=== PATIENT | female | born 1970 | race Caucasian/White ===

== ENCOUNTER → 2017-09-15 | Day surgery (SDC) | payer OTHER, MEDICARE ==
[~2017-09-15] VITALS: Ht 160 cm; Wt 84.4 kg
[~2017-09-15] MED LIST: ALPR-1 PO; ATOR20TA65 PO; DESV100T PO; DIAZ-308 PO; DULO60CA7; GABA-549 PO; LEVO112T44 PO; LIDOCAINE/SOD BICARB 8.4% SYR ID ONE; NORMOSOL R SOLN(*) 1000 ML BAG 1,000 ML IV PRN; ONDA8TAB91 PO; PANT40TA65 PO; PREG100C44 PO; PROP40TA45 PO; PROPOFOL EMUL(*) 10MG/ML 20 ML 40 ML ONE; QUET50TA PO; RANI-324 PO; RIZA10TA3 PO; SUCR1TAB51 PO; TRI50 FT; TRIA1CAP85 PO; [UNRECOGNIZED DRUG - OTHER]
[2017-09-15 10:00] VITALS: BP 124/88
[2017-09-15 12:26] VITALS: BP 108/76
[2017-09-15 12:29] VITALS: BP 112/75
[2017-09-15 13:13] VITALS: BP 112/85
[2017-09-15 13:18] VITALS: BP 120/94
[2017-09-15 13:20] VITALS: BP 105/85
== END ==
LOC: OR 01:25
PROVIDERS: ATTEND Internal Medicine Gastroenterology
DX: K20.9 Esophagitis, unspecified (principal); K44.9 Diaphragmatic hernia without obstruction or gangrene; K29.70 Gastritis, unspecified, without bleeding
CPT/HCPCS: 43239; 88305; 88313; 88344; J2704

== ENCOUNTER → 2017-10-18 | Outpatient (CLI) | payer MEDICARE, OTHER ==
[~2017-10-18] MED LIST changes: -LIDOCAINE/SOD BICARB 8.4% SYR ID ONE; -NORMOSOL R SOLN(*) 1000 ML BAG 1,000 ML IV PRN; -PROPOFOL EMUL(*) 10MG/ML 20 ML 40 ML ONE; -RANI-324 PO; +RANI-366 PO; +REGADENOSON 0.4 MG/5 ML SYR ONE
--- NOTE | 2017-10-18 17:10 | RADIOLOGY IMAGING REPORT ---
FACILITY: [facility] PATIENT NAME: Jami Hope : 1970 MR: [id number] V: [id number] EXAM DATE: ORDERING PHYSICIAN: ROSALEE SOLORIO TECHNOLOGIST: [facility] Patient: Jami Hope : 1970 Visit/Account:[id number] Date of Sevice: 10/18/2017 EXAMINATION: Single isotope SPECT imaging with regadenoson infusion and gated SPECT imaging. DATE OF EXAMINATION: 10/18/2017. DATE OF INTERPRETATION: 10/18/2017. REQUESTING PHYSICIAN: ROSALEE SOLORIO. INDICATION: The patient is a 47-year-old female evaluated for abnormal EKG. PROCEDURE: After informed consent the patient received an intravenous injection of 11.9 mCi of Tc-99 m sestamibi followed at an appropriate time interval by rest imaging. The patient then subsequently received an intravenous infusion of 0.4 mg of regadenoson per protocol without complication. Resting heart rate was 73 bpm with a peak heart rate of 116 bpm. Blood pressure at rest was 119 / 84 and fo llowing infusion was 126 / 71. Baseline EKG demonstrates normal sinus rhythm with nonspecific ST-T w ave changes. There were no EKG changes of ischemia following infusion. Symptoms were nonspecific. The patient then received an intravenous injection of 30.5 mCi of Tc-99m sestamibi followed by stress imaging. RAW DATA: Examination of the summed raw data revealed a adequate quality study. Breast attenuation p resent. MYOCARDIAL PERFUSION: The tomographic images demonstrate a small sized, mild intensity fixed apical anterior defect consistent with breast attenuation. No reversible ischemia or infarct pattern noted. No transient ischemic dilation.. GATED IMAGES: The gated images demonstrate LV ejection fraction of 59%. Normal regional wall motion function.. IMPRESSION: 1. Nondiagnostic pharmacologic stress ECG 2. Probably normal myocardial perfusion scan. Attenuation artifact present. 3. Normal LV systolic function; LVEF 59%. 4. Based on the results of this exam, the patient appears to be at low risk for future cardiovascular events. Report Dictated By: Taurus Kerr at 10/18/2017 5:02 PM Report E-Signed By: Taurus Kerr at 10/18/2017 5:07 PM WSN:[id number]
== END ==
LOC: RESP 02:01
PROVIDERS: ATTEND Internal Medicine Cardiovascular Disease
DX: R94.31 Abnormal electrocardiogram [ECG] [EKG] (principal)
CPT/HCPCS: 78452; 93017; A9500; J2785

== ENCOUNTER → 2018-05-26 | Outpatient (CLI) | payer OTHER, MEDICARE ==
[~2018-05-26] MED LIST changes: -REGADENOSON 0.4 MG/5 ML SYR ONE
--- NOTE | 2018-05-26 18:11 | RADIOLOGY IMAGING REPORT ---
FACILITY: [facility] PATIENT NAME: Jami Hope : 1970 MR: [id number] V: [id number] EXAM DATE: ORDERING PHYSICIAN: MARSHA HAINES TECHNOLOGIST: Location: [facility] [place] Patient: Jami Hope : 1970 Visit/Account:[id number] Date of Sevice: 05/26/2018 EXAMINATION: Lumbar Spine 2 views HISTORY: Low back pain. COMPARISON: None. FINDINGS: There are 5 lumbar-type vertebral segments. No radiographic evidence of acute fracture or subluxation in the lumbar spine. Normal alignment. Vertebral body height and disc spaces are preserved. IMPRESSION: Unremarkable lumbar spine series. Report Dictated By: Jethro Shook MD at 05/26/2018 6:05 PM Report E-Signed By: Jethro Shook MD at 05/26/2018 6:06 PM WSN:[id number]
== END ==
LOC: RAD 17:27
PROVIDERS: ATTEND Family Medicine
DX: M54.5 Low back pain (principal)
CPT/HCPCS: 72100